=== PATIENT | female | born 1955 | race Caucasian/White ===

== ENCOUNTER 2017-11-04 10:03 | Emergency (ER) | payer MEDICAID ==
[~2017-11-04] VITALS: Ht 165.1 cm; Wt 62.3 kg
[~2017-11-04 10:03] MED LIST: ALBU8HFA PO; BACL10TA PO; BUSP15TA3 PO; CIPR250T4 PO; GABA-532 PO; HYDR-569 PO; LEVO25TA7 PO; MOME17SP BOTHNARES; POLY255P2 PO
[2017-11-04 10:04] VITALS: BP 129/78
[2017-11-04] MEDS ORDERED: DOXY100C43 PO (10:47)
[2017-11-04] MEDS ORDERED: MUPI22OI30 TOP (10:48)
== END 2017-11-04 11:28 | disposition home or self-care (01) ==
LOC: ER 10:04
DX: J34.0 Abscess, furuncle and carbuncle of nose (principal); J34.89 Other specified disorders of nose and nasal sinuses; J44.9 Chronic obstructive pulmonary disease, unspecified; G89.29 Other chronic pain; Z98.890 Other specified postprocedural states; Z88.0 Allergy status to penicillin; Z88.2 Allergy status to sulfonamides; Z88.1 Allergy status to other antibiotic agents; Z88.5 Allergy status to narcotic agent; Z79.899 Other long term (current) drug therapy
CPT/HCPCS: 99283

== ENCOUNTER 2017-11-19 11:27 | Day surgery (SDC) | payer MEDICAID ==
[~2017-11-19] VITALS: Ht 167.6 cm; Wt 62.7 kg
[2017-11-19 11:50] VITALS: BP 123/69
[2017-11-19] MEDS ORDERED: MIDAZolam 5mg/5ml vial ONE (12:52)
[2017-11-19] MEDS ORDERED: LIDOcaine Viscous 15ml cup ONE (12:52)
[2017-11-19] MEDS ORDERED: fentaNYL/PF 50MCG/1 ML 2ML syringe ONE (12:52)
[2017-11-19 14:02] VITALS: BP 112/67
[2017-11-19 14:12] VITALS: BP 98/60
[2017-11-19 14:22] VITALS: BP 109/73
[2017-11-19 14:32] VITALS: BP 108/78
[2017-11-19] MEDS ORDERED: ALBU18HF2 INH (14:37)
[2017-11-19] MEDS ORDERED: MULT-1085 PO (14:37)
[2017-11-19 14:42] VITALS: BP 128/69
== END 2017-11-19 14:55 | disposition home or self-care (01) ==
LOC: GI LAB 11:27
PROVIDERS: ATTEND Internal Medicine Gastroenterology
DX: I85.00 Esophageal varices without bleeding (principal); J44.9 Chronic obstructive pulmonary disease, unspecified; M19.90 Unspecified osteoarthritis, unspecified site; F32.89 Other specified depressive episodes; F41.8 Other specified anxiety disorders; G89.29 Other chronic pain; M81.0 Age-related osteoporosis without current pathological fracture; E03.9 Hypothyroidism, unspecified; M17.0 Bilateral primary osteoarthritis of knee; M19.011 Primary osteoarthritis, right shoulder; M19.012 Primary osteoarthritis, left shoulder; K21.9 Gastro-esophageal reflux disease without esophagitis; Z88.0 Allergy status to penicillin; Z88.2 Allergy status to sulfonamides; Z88.5 Allergy status to narcotic agent; Z88.1 Allergy status to other antibiotic agents; Z96.611 Presence of right artificial shoulder joint; Z86.19 Personal history of other infectious and parasitic diseases; Z96.612 Presence of left artificial shoulder joint; Z96.651 Presence of right artificial knee joint; Z90.89 Acquired absence of other organs; Z87.891 Personal history of nicotine dependence; Z88.8 Allergy status to other drugs, medicaments and biological substances; Z98.890 Other specified postprocedural states; Z79.899 Other long term (current) drug therapy
CPT/HCPCS: 43235; 99152; J2250; J3010; J7030; A4620; G0500

== ENCOUNTER 2019-07-25 14:21 | Emergency (ER) | payer MEDICARE, MEDICAID ==
[~2019-07-25] VITALS: Ht 165.1 cm; Wt 61.4 kg
[~2019-07-25 14:21] MED LIST changes: +ALBU18HF2 INH; -ALBU8HFA PO; -BACL10TA PO; -BUSP15TA3 PO; -CIPR250T4 PO; -GABA-532 PO; -HYDR-569 PO; -LEVO25TA7 PO; +MULT-1085 PO; -POLY255P2 PO
[2019-07-25 14:36] VITALS: BP 124/85
[2019-07-25] MEDS ORDERED: HYDROcodone/acetaminophen 5mg/325mg tablet PO ONE (15:30)
[2019-07-25] MEDS ORDERED: TRAM50TA2 PO (15:31)
== END 2019-07-25 16:04 | disposition home or self-care (01) ==
LOC: ER 14:22
DX: S90.32XA Contusion of left foot, initial encounter (principal); J44.9 Chronic obstructive pulmonary disease, unspecified; G89.29 Other chronic pain; F41.9 Anxiety disorder, unspecified; F31.9 Bipolar disorder, unspecified; Z98.890 Other specified postprocedural states; Z88.0 Allergy status to penicillin; Z88.2 Allergy status to sulfonamides; Z88.5 Allergy status to narcotic agent; Z88.8 Allergy status to other drugs, medicaments and biological substances; Z79.899 Other long term (current) drug therapy; Z86.19 Personal history of other infectious and parasitic diseases; X31.XXXA Exposure to excessive natural cold, initial encounter; Y93.89 Activity, other specified; Y92.89 Other specified places as the place of occurrence of the external cause; Y99.8 Other external cause status
CPT/HCPCS: 73630; 99283

== ENCOUNTER 2023-02-13 05:45 | Day surgery (SDC) | payer MEDICARE, MEDICAID ==
[2023-02-13] VITALS (13 sets, daily range): BP systolic 109–155; BP diastolic 80–93; PULSE 68–88; RESP 10–21; TEMP 96.9; O2SAT 96–100
[~2023-02-13] VITALS: Ht 167.6 cm; Wt 66.0 kg
[~2023-02-13 05:45] MED LIST changes: -ALBU18HF2 INH; +ECHINACEA; +GOLDEN SEAL; -MOME17SP BOTHNARES; -MULT-1085 PO; +MULTIVITAMIN; +TURMERIC; +famotidine 20mg tablet PO ONE; +oxymetazoline 15 ML nasal spray NS ONE; +ringers solution, lacted 1,000 ML IV SCH; +tranexamic acid inj. 1,000 MG in normal saline IV soln 100ML IV ONE
[2023-02-13] MEDS ORDERED: tranexamic acid 100mg/ml inj. ONE (06:59)
[2023-02-13] MEDS ORDERED: epiNEPHrine 1 mg/ml 30ml MDV ONE (06:59)
[2023-02-13] MEDS ORDERED: oxymetazoline 15 ML nasal spray NS ONE (06:59)
[2023-02-13] MEDS ORDERED: mupirocin 2% ointment 22GM ONE (06:59)
[2023-02-13] MEDS ORDERED: cocaine 4% topical solution 4ml bottle ONE (06:59)
[2023-02-13] MEDS ORDERED: LIDOcaine 1% w/EPI 1:100,000 inj. MDV 50 ML VIAL ONE (06:59)
[2023-02-13] MEDS ORDERED: propofol inj 20 ML IV ONE ×2 (08:01→09:55)
[2023-02-13] MEDS ORDERED: fentaNYL/PF 50MCG/1 ML 2ML syringe ONE (08:01)
[2023-02-13] MEDS ORDERED: midazolam 1 mg/ML 2ml injection ONE (08:01)
[2023-02-13] MEDS ORDERED: sevoflurane 250ml liquid IH ONE (08:06)
[2023-02-13] MEDS ORDERED: clindamycin-Cleocin 900mg/D5W 50 ML IV ONE (08:22)
[2023-02-13] MEDS ORDERED: ondansetron/PF 4mg/2ml inj ONE (08:37)
[2023-02-13] MEDS ORDERED: ePHEDrine 50MG/ML INJ. ONE (08:37)
[2023-02-13] MEDS ORDERED: dexamethasone sod phosphate 4mg/ml inj. ONE (08:37)
[2023-02-13] MEDS ORDERED: ondansetron/PF 4mg/2ml inj IV PRN (09:05)
[2023-02-13] MEDS ORDERED: ringers solution, lacted 1,000 ML IV SCH (09:05)
[2023-02-13] MEDS ORDERED: morphine 4 MG/ML inj SYRINge IV PRN (09:05)
[2023-02-13] MEDS ORDERED: morphine 2 MG/ML inj. syringe IV PRN (09:05)
[2023-02-13] MEDS ORDERED: proCHLORperazine 10 MG/2 ml inj IV PRN (09:05)
[2023-02-13] MEDS ORDERED: meperidine/PF 25mg/ml syringe IV PRN ×2 (09:05)
[2023-02-13] MEDS ORDERED: labetalol 20mg/4ml (5mg/ml) syringe IV PRN (09:05)
--- NOTE | 2023-02-13 09:24 | NUR ---
Received from OR via [facility], accompanied by Anesthesiologist armin and report given by Anesthesiolgist and OR, RN. Pt sleepy but responding appropriately and able to follow commands. No blood or bleeding present from bilateral nares. 10L SM o2 saturation 98%. Will continue to monitor for bleeding and pain.
--- NOTE | 2023-02-13 09:24 | NUR ---
HOB at 45 degree.
[2023-02-13] MEDS ORDERED: salt irrigation nasal spray 45 ML SPRAY NS SCH (09:47)
--- NOTE | 2023-02-13 09:55 | NUR ---
Bilateral nasal gauze removed at 0955, scant amount of serous blood. Nasal cortes and gauze in place per orders.
[2023-02-13] MEDS: meperidine/PF 25mg/ml syringe IV PRN ×2 (09:59→10:04)
[2023-02-13] MEDS ORDERED: mupirocin 2% nasal ointment 1gm UD NS SCH (10:04)
--- NOTE | 2023-02-13 11:14 | NUR ---
Pt DC instructions given and all nasal irrigation supplies given, pt verbalized understanding. All belongings on patient: clothes, shoes, and glasses. Pt wearing nasal dressing cortes and gauze in place under nares, CDI. Pt transported to private vehicle without incidence.
== END 2023-02-13 11:14 | disposition home or self-care (01) ==
LOC: PAS 05:45
PROVIDERS: ATTEND Otolaryngology
DX: J34.2 Deviated nasal septum (principal); J34.3 Hypertrophy of nasal turbinates; J32.8 Other chronic sinusitis; J44.9 Chronic obstructive pulmonary disease, unspecified; M19.90 Unspecified osteoarthritis, unspecified site; Z88.0 Allergy status to penicillin; Z88.2 Allergy status to sulfonamides; Z88.5 Allergy status to narcotic agent; Z88.8 Allergy status to other drugs, medicaments and biological substances; Z96.653 Presence of artificial knee joint, bilateral; Z96.611 Presence of right artificial shoulder joint; Z96.612 Presence of left artificial shoulder joint; Z98.890 Other specified postprocedural states; Z86.19 Personal history of other infectious and parasitic diseases; Z87.11 Personal history of peptic ulcer disease; Z79.899 Other long term (current) drug therapy
CPT/HCPCS: 30140; 30520; 31254; 31267; 61782; 82948; 93005; A6402; J0171; J1100; J2175; J2250; J2270; J2405; J2704; J3010; J3490; J7030; J7050; J7120; Z7506; Z7508; Z7512; A4618; A6449; A7000

== ENCOUNTER 2023-12-12 11:48 | Emergency (ER) | payer MEDICARE, MEDICAID ==
[~2023-12-12 11:48] MED LIST changes: -famotidine 20mg tablet PO ONE; -oxymetazoline 15 ML nasal spray NS ONE; -ringers solution, lacted 1,000 ML IV SCH; -tranexamic acid inj. 1,000 MG in normal saline IV soln 100ML IV ONE
== END 2023-12-12 12:00 | disposition left against medical advice (07) ==
LOC: ER 11:48
DX: U07.1 COVID-19 (principal); Z53.21 Procedure and treatment not carried out due to patient leaving prior to being seen by health care provider; Z88.0 Allergy status to penicillin; Z88.2 Allergy status to sulfonamides; Z88.1 Allergy status to other antibiotic agents; Z88.8 Allergy status to other drugs, medicaments and biological substances